=== PATIENT | female | born 1955 | race Asian ===

== ENCOUNTER 2020-02-24 20:16 | Inpatient (IN) | payer MEDICARE, OTHER ==
[~2020-02-24] VITALS: Ht 160 cm; Wt 52.6 kg
[2020-02-24] MEDS ORDERED: MAG HYDROX/AL HYDROX/SIMETH 30 ML UDC PO PRN (21:30)
[2020-02-24] MEDS ORDERED: LORAZEPAM 0.5 MG TABLET PO PRN (21:30)
[2020-02-24] MEDS ORDERED: TEMAZEPAM 7.5 MG CAPSULE PO PRN (21:30)
[2020-02-24] MEDS ORDERED: BLOOD SUGAR DIAGNOSTIC 1 EACH STRIP IN ONE (21:30)
[2020-02-24] MEDS ORDERED: ACETAMINOPHEN 325 MG TABLET PO PRN (21:30)
[2020-02-24] MEDS ORDERED: MAGNESIUM HYDROXIDE 30 ML UDC PO PRN (21:30)
[2020-02-24] MEDS ORDERED: BLAC540C4 PO (22:53)
[2020-02-24] MEDS ORDERED: PARO10TA86 PO (22:53)
[2020-02-24] MEDS ORDERED: GARL1000 PO (22:53)
--- NOTE | 2020-02-24 23:46 | NUR ---
Admitted this 64 years old female from. [facility]. patient was place on 5150 hold due to dangers to her self refusing the care, refusing the medications.patient is alert, oriented x 3 paranoid think people are giving poison on her medications. upon admission patient is calm and cooperative. dr. Olmedo is notify. hospital hand book and policy was handed to the patient patient sign the consent paper advisement handed to the patient. skin assessment is done all skin is clear no open skin or bruise noted. family was inform regarding the admission to the [facility] will continues to monitor the patient for safety and fall and make round every 15 mins for safety.
[2020-02-25 08:00] VITALS: BP 151/75
[2020-02-25 08:32] LABS: ALBUMIN 3.8 g/dL (3.4-5.0); BILIRUBIN,TOTAL 0.6 mg/dL (0.2-1.0); CALCIUM, SERUM 8.7 mg/dL (8.5-10.1); CREATININE 0.6 mg/dL (0.6-1.3); POTASSIUM 3.7 mmol/L (3.5-5.1); TOTAL PROTEIN, SERUM 7.2 g/dL (6.4-8.2)
[2020-02-25 12:20] LABS: BASOPHILS % (AUTO) 0.7 % (0.0-2.0); EOSINOPHILS % (AUTO) 0.9 % (0.0-6.0); HEMATOCRIT 45 % (33-45); HEMOGLOBIN 14.8 g/dL (11.5-14.8); LYMPHOCYTES # (AUTO) 1.2 /CMM (0.8-4.8); LYMPHOCYTES % (AUTO) 22.1 % (20.0-44.0); MEAN CORPUSCULAR HGB CONC 33 g/dl (31.0-36.0); MEAN CORPUSCULAR VOLUME 89 fL (82-100); MONOCYTES # (AUTO) 0.3 /CMM (0.1-1.30); MONOCYTES % (AUTO) 5.7 % (2.0-12.0); NEUTROPHILS # (AUTO) 3.7 /CMM (1.8-8.9); NEUTROPHILS % (AUTO) 70.6 % (43.0-81.0); PLATELET COUNT (AUTO) 194 /CMM (150-450); RED BLOOD CELL COUNT(AUTO) 5.06 MIL/uL (4.0-5.2); WHITE BLOOD COUNT (AUTO) 5.3 K/uL (4.3-11.0)
[2020-02-25 16:00] VITALS: BP 130/87
[2020-02-25 19:43] VITALS: BP 137/76
[2020-02-25] MEDS ORDERED: OLANZAPINE 2.5 MG TABLET PO SCH (21:00)
--- NOTE | 2020-02-25 22:05 | NUR ---
GPS RN NOTE: REFUSED MED PT REFUSED SCHEDULED ZYPREXA, ASKED PT 3X, REMINDED PT OF THE BENEFITS OF TAKING MEDICATION, PT WAS IN A LABILE MOOD, ANGRY, YELLING SHOUTING, PT STATED "GET OUT OF MY ROOM IM NOT DEALING WITH ANY OF YOU, IM NOT TAKING ANYTHING". WILL CONTINUE TO MONITOR Q15MIN FOR SAFETY AND BEHAVIOR.
--- NOTE | 2020-02-25 22:10 | NUR ---
GPS RN NOTE PT BECAME LABILE, VERBALLY AGGRESSIVE, WALKED TO THE NURSING STATION AND LIED DOWN ON THE GROUND AND STATED "I AM NOT FEELING GOOD, I WANT TO GO BACK TO [facility]" PT REFUSED TO GET UP AND ONCE TAKEN TO ROOM, PT WAS PLACED ON HER BED AND THEN ATTEMPTED TO THROW HERSELF TO THE GROUND. PT WAS THEN PLACED IN A GERICHAIR AND WAS REDIRECTED. PT UNDERSTOOD WHY SHE HAD TO SIT IN A CHAIR AND SAID "ILL CALM DOWN HERE UNTIL I FEEL READY TO GO BACK". WILL CONTINUE TO MONITOR Q15MIN FOR SAFETY AND BEHAVIOR.
--- NOTE | 2020-02-25 22:36 | NUR ---
GPS RN NOTE PT WAS SLEEPING IN GERICHAIR IN DINING AREA, WHEN ASKED PT IF SHE WANTED TO GO BACK TO ROOM SHE SAID "ILL SLEEP HERE, IM FINE". PT MOOD IS CALM AND COOPERATIVE OF NOW. WILL CONTINUE TO MONITOR Q15 MIN FOR SAFETY AND BEHAVIOR.
--- NOTE | 2020-02-26 04:44 | NUR ---
GPS RN NOTE PT WOKE UP RN REQUESTING TO GO TO BED, ESCORTED PT TO BED, ONCE IN BED PT GOT UP AND SAID "I WANT TO GO SLEEP IN THE CHAIR, I FEEL SAFER IN THE CHAIR NEXT TO SOMEONE I WANT TO SLEEP THERE". ALL NEEDS MET, PT WAS CALM, COOPERATIVE, FLAT AFFECT, GUARDED. WILL CONTINUE TO MONITOR Q15MIN FOR SAFETY AND BEHAVIOR. Addendum: 02/26/20 at 1916 by BRIANA MEEK RN CORRECTION* GPS RN NOTE PT WOKE UP REQUESTING TO GO TO BED, ESCORTED PT TO BED, ONCE IN BED PT GOT UP AND SAID "I WANT TO GO SLEEP IN THE CHAIR, I FEEL SAFER IN THE CHAIR NEXT TO SOMEONE I WANT TO SLEEP THERE". ALL NEEDS MET, PT WAS CALM, COOPERATIVE, FLAT AFFECT, GUARDED. WILL CONTINUE TO MONITOR Q15MIN FOR SAFETY AND BEHAVIOR
--- NOTE | 2020-02-26 05:11 | NUR ---
GPS RN NOTE PT WENT BACK INTO BED @ 0511, STATED "IM GOING TO TRY TO SLEEP IN BED NOW I DONT WANT TO GET ANXIETY". PT WAS COMPLIANT, AMBULATED TO BED ALONE WITH STANDBY ASSISTANCE, WILL CONTINUE TO MONITOR Q15IN FOR SAFETY AND BEHAVIOR.
[2020-02-26 08:00] VITALS: BP 149/95
--- NOTE | 2020-02-26 11:56 | NUR ---
LUISA Initial Discharge Plan: Patient currently resides at [address] [facility] [place] [address]; ([phone]). Per pt's son Bam ([phone]) is in the process of finding a Residental Facility for pt. This policy writer will find alternative placement for pt and will work with the treatment team.
--- NOTE | 2020-02-26 11:57 | NUR ---
SW Family Contact: This marketing writer contacted patient's son Bam ([phone]) and discussed discharge plan and treatment plan. Per Bam, he stated that they are searching to find a residential facility for pt.
[2020-02-26] MEDS: risperiDONE 0.25 MG TABLET PO SCH ×2 (12:17→17:34)
[2020-02-26 16:00] VITALS: BP 151/79
[2020-02-26 19:48] VITALS: BP 138/75
[2020-02-27 08:00] VITALS: BP 143/83
[2020-02-27] MEDS: risperiDONE 0.25 MG TABLET PO SCH ×2 (08:03→16:33)
--- NOTE | 2020-02-27 11:08 | NUR ---
SW Family Contact: This speech writer contacted patient's son Gene ([phone]) and discussed if he has found a placement, however, he stated he has not found a placement yet.
[2020-02-27 16:00] VITALS: BP 143/85
[2020-02-27 19:59] VITALS: BP 151/84
[2020-02-27 20:00] VITALS: BP 151/84
[2020-02-28] MEDS: risperiDONE 0.25 MG TABLET PO SCH ×3 (08:07→16:32)
--- NOTE | 2020-02-28 08:18 | NUR ---
SW Family Contact: This advertising copywriter spoke with patient's son Raz ([phone]) and discussed discharge planning. Per son, he is still in the process of finding a residential facility.
[2020-02-28 08:40] VITALS: BP 140/94
--- NOTE | 2020-02-28 13:46 | NUR ---
SW Discharge Plan: This principal technical writer spoke with Ashia davidson from [facility] ([phone]) (F:[phone]) who stated that they will accept pt. [facility] [address], [place] [address]; ([phone]).
--- NOTE | 2020-02-28 13:50 | NUR ---
SW Family Contact: Pt's son Raz ([phone]) contacted this medical underwriter and stated that they found a residential facility for pt and gave information to this medical underwriter called [facility] and to talk to Ashia ([phone]).
--- NOTE | 2020-02-28 14:07 | NUR ---
Substance Abuse Intervention: This commercial underwriter provided brief substance abuse counseling in regards to pt drinking alcohol.
[2020-02-28 16:00] VITALS: BP 146/93
[2020-02-28 19:55] VITALS: BP 118/76
--- NOTE | 2020-02-29 06:13 | NUR ---
GPS RN NOTES: PT. RESTING IN HER ROOM, CALM NOTED AT THIS TIME . NO S/S OF DISTRESS NOTED . NO CHANGE OF CONDITION NOTED, ALL CARE NEEDS MET ANTICIPATED. WILL CONTINUE TO MONITOR FOR SAFETY BEHAVIOR, AND ENDORSE TO AM SHIFT FOR CONTINUITY OF CARE.
[2020-02-29 08:00] VITALS: BP 159/82
--- NOTE | 2020-02-29 08:13 | NUR ---
SW Discharge Note: Patient will be discharged to [facility] [address], [place] [address]; ([phone]). This telegraphic typewriter operator chief spoke with admin Ashia ([phone]) is aware and agreeable with accepting pt. Pts carlos Crandall ([phone]) will picking tech pt at 11AM. Patients son Raz ([phone]) is aware and agreeable with discharge plan. Patient appeared alert and oriented x4. Patient is agreeable and aware of discharge. Upon discharge, patient appear to be calm, cooperative and happy to be going home. Patient will follow up with (waxing machine operator helper) Dr. Sabillon and (psychiatrist) Dr. Arana at [facility]. Patient was provided referrals to the following substance abuse programs: [facility] ([phone]); [facility] [address] [place] [address] ([phone]); [address] [address] ([phone]); [facility] ([phone]); [facility] ([phone]); [facility] ([phone]); [facility] ([phone]). Patient presented with euthymic mood and congruent affect.
[2020-02-29] MEDS: risperiDONE 0.25 MG TABLET PO SCH (08:21)
--- NOTE | 2020-02-29 11:22 | NUR ---
PATIENT DISCHARGED. PATIENT IN STABLE CONDITION. NO SI OR HI AT THIS TIME. PATIENT PICKED UP BY SON (LAURA) AND TO BE BROUGHT TO RESIDENTIAL FACILITY. DISCHARGE PACKET, EXIT CARE PROVIDED.
== END 2020-02-29 11:15 | disposition home or self-care (01) | DRG 885 ==
LOC: GPS 20:34
PROVIDERS: ADMIT Psychiatry & Neurology Psychosomatic Medicine
DX: F25.0 Schizoaffective disorder, bipolar type (principal); F32.9 Major depressive disorder, single episode, unspecified; F43.10 Post-traumatic stress disorder, unspecified; G47.00 Insomnia, unspecified; F29 Unspecified psychosis not due to a substance or known physiological condition; Z73.6 Limitation of activities due to disability; R53.1 Weakness; R27.9 Unspecified lack of coordination; F41.9 Anxiety disorder, unspecified; E78.5 Hyperlipidemia, unspecified; Z91.81 History of falling; R73.9 Hyperglycemia, unspecified; G31.84 Mild cognitive impairment of uncertain or unknown etiology
CPT/HCPCS: 36415; 80053-TC; 80061-TC; 82962-TC; 85025-TC; 87081-TC